=== PATIENT | female | born 1930 | race Two or more races ===

== ENCOUNTER 2016-05-17 14:18 | Emergency (ER) | payer OTHER ==
[2016-05-17] MEDS ORDERED: ACETAMINOPHEN 325 MG TAB PO ONE (15:27)
--- NOTE | 2016-05-17 16:40 | UCPHY ---
H & P Patient Type: Established Chief Complaint Nursing Narrative: R hip pain radiating towards front knee since this Sunday. Time Seen by Provider: 05/17/16 15:12 HPI/ROS: This patient complains of right hip pain over the past 4 days that is in the lateral aspect of the right hip. She is also having pain in the right thigh and lesser so on the right leg. She feels a sense of muscle spasms intermittently in the right thigh associated with the symptoms. She describes the pain as achy at baseline and sharp with walking. She has had mild relief from Aleve given intermittently by her daughter. No other exacerbating factors. She has no other associated symptoms. She has had similar pain in the past of lesser intensity. ROS: No fevers or chills. No other constitutional symptoms. HEENT: No complaints cardiovascular: No claudication symptoms. Neuro: No numbness or tingling down the leg. Musculoskeletal: No recent trauma. No back pain. No bowel or bladder incontinence. 7 point ROS is otherwise negative. 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 Eyes: Pupils equal and round no pallor or injection. ENT, Mouth: Mucous membranes moist. Respiratory: There are no retractions, lungs are clear to auscultation. Cardiovascular: Regular rate and rhythm. 2+ dorsalis pedis pulses are symmetric bilaterally. She does have mild right leg swelling and posterior calf tenderness. Homans is negative. Gastrointestinal: Abdomen is soft and nontender, no masses, bowel sounds normal. Neurological: Alert with no focal deficits Skin: Warm and dry, no rashes. Musculoskeletal: Neck is supple nontender. Extremities atraumatic and normal except for right lower extremity Right lower extremity: Patient has lateral hip tenderness. No back or buttock tenderness. No pain or tenderness in the sciatic notch. Knee exam is benign. Lower extremity calf see cardiovascular exam above Psychiatric: Mood and affect are normal DIFFERENTIAL DIAGNOSIS: After history and physical exam differential diagnosis was considered for rule out hip fracture, osteoarthritis, DVT, doubt sciatica, doubt claudication Constitutional: Initial Vital Signs Heart Rate 88 05/17/16 14:24 Respiratory Rate 20 05/17/16 14:24 Blood Pressure 190/97 H 05/17/16 14:24 O2 Sat (%) 91 L 05/17/16 14:24 O2 Delivery Mode Room Air Allergies/Adverse Reactions: No Known Allergies Allergy (Unverified 05/17/16 14:31) Home Medications: Medication Instructions Recorded ASPIRIN 06/20/15 Pravastatin Sodium 06/20/15 Ranitidine HCl 06/20/15 Supplements 06/20/15 Zofran 06/20/15 Methocarbamol [Robaxin 750 mg (*)] 750 - 1,500 mg PO QID PRN #30 tab 05/17/16 Medical Decision Making - Diagnostics Imaging: Right hip x-ray: Negative for fracture. Mild osteoarthritis by my interpretation Doppler of right lower extremity is negative for DVT per radiologist. ED Course/Re-evaluation: I counseled patient and family regarding osteoarthritis and muscle spasm. Will start her on methocarbamol. Rule out DVT. No hip fracture and no significant osteoarthritis of the may be enough to cause her symptoms. She will follow up with orthopedics for any ongoing symptoms. - Data Points Medications Given: Discontinued Medications Acetaminophen (Tylenol) 650 mg PO EDNOW ONE Stop: 05/17/16 15:28 Last Admin: 05/17/16 15:34 Dose: 650 mg Departure - Departure Disposition: Home, Routine, Self-Care Clinical Impression: Muscle spasm of left lower extremity Degenerative joint disease of right hip Qualifiers: Osteoarthritis type: primary Qualified Code(s): M16.11 - Unilateral primary osteoarthritis, right hip Condition: Good Instructions: Muscle Spasm (ED), Hip Pain (ED) Additional Instructions: Diagnosis: 1. Hip pain 2. Mild degenerative arthritis of hip 3. Muscle spasm of lower extremity Plan: Continue Tylenol for discomfort. Methocarbamol muscle relaxant in addition Gentle stretches of hamstring and thigh daily as described. Stretch each set of muscles for at least 3-5 minutes. Follow up with primary care physician or Dr Navas, transportation specialist for further evaluation for any ongoing symptoms. Referrals: Zahira Stroud MD [Primary Care Provider] - As per Instructions Anthony Navas MD [Medical Doctor] - As per Instructions Prescriptions: Methocarbamol [Robaxin 750 mg (*)] 750 - 1,500 mg PO QID PRN #30 tab PRN Reason: Muscle Spasms - PQRS PQRS Measurement: NA
[2016-05-17 16:49] VITALS: BP 164/96; PULSE 72; RESP 16; O2SAT 94
== END 2016-05-17 16:49 | disposition home or self-care (01) ==
LOC: CED 14:18
DX: M62.838 Other muscle spasm (principal); M16.11 Unilateral primary osteoarthritis, right hip
CPT/HCPCS: 73502; 93971; G0463; 99214-PO

== ENCOUNTER → 2017-04-30 | Outpatient (CLI) | payer OTHER, MEDICARE | LOC: CIMAGING 08:41 | PROVIDERS: ATTEND Family Medicine | DX: Z12.31 Encounter for screening mammogram for malignant neoplasm of breast (principal); Z80.3 Family history of malignant neoplasm of breast ==

== ENCOUNTER → 2017-08-29 | Outpatient (CLI) | payer OTHER, MEDICARE | LOC: FIMAGING 10:40 | PROVIDERS: ATTEND Family Medicine | DX: Z13.820 Encounter for screening for osteoporosis (principal); M81.0 Age-related osteoporosis without current pathological fracture; Z85.3 Personal history of malignant neoplasm of breast ==

== ENCOUNTER → 2018-06-14 | Outpatient (CLI) | payer OTHER, MEDICARE | LOC: CIMAGING 13:14 | PROVIDERS: ATTEND Family Medicine | DX: Z12.31 Encounter for screening mammogram for malignant neoplasm of breast (principal); Z85.3 Personal history of malignant neoplasm of breast; Z80.3 Family history of malignant neoplasm of breast ==